=== PATIENT | female | born 1985 | race Caucasian/White ===

== ENCOUNTER 2020-04-07 09:49 | Inpatient (IN) | payer OTHER ==
--- NOTE | 2020-04-07 13:15 | PR ---
[facility] [address] [facility] [place], [place] [address] Signed Progress Notes IP Datetime Report Generated by CPN: 04/07/2020 13:15 PROGRESS NOTES: [id number] Impression: Normal progression of labor; Reassuring heart rate Procedures: Sterile Vag Exam Plan: Continue present management VITAL SIGNS: [id number] Vital Signs: Reviewed; Within Normal Limits VS Notable Details: Mildly elevated (sustained) bps in office EXAM: [id number] Dilatation: 3.5 Effacement: 95 Station: -4 Uterine Contractions: Irregular MEMBRANES: [id number] Membrane Status: Intact Comments: Pt seen and examined. Doing well. Feeling mild contractions and slightly more pelvic pressure. FHT Cat 1. station remains quite high. Will continue pitocin and anticipate AROM when vertex well applied Fetus A: [id number] FHR Baseline: 145 Variability: Moderate 6-25bpm Accelerations: 15X15 Decelerations: None FHR Category: Category I Presentation: Vertex Comments on Fetus A: No evidence of metabolic acidosis Fetus B: [id number] Signing Physician: Juan Jacobo DO Copies: ~ *Electronically Signed* 04/07/20 9139 JUAN JACOBO DO PATIENT NAME: MAGGIE GAMEZ PROGRESS NOTE DATE OF : 85 PHYSICIAN: JUAN JACOBO DO RPT #: [id number] REPORT IS CONFIDENTIAL AND NOT TO BE RELEASED WITHOUT AUTHORIZATION
--- NOTE | 2020-04-07 15:30 | PR ---
[facility] [address] [place], [place] [address] Signed Progress Notes IP Datetime Report Generated by CPAlesha: 04/07/2020 15:30 PROGRESS NOTES: [id number] Impression: Normal progression of labor; Reassuring heart rate Procedures: Artificial ROM; Sterile Vag Exam Plan: Continue present management VITAL SIGNS: [id number] Vital Signs: Reviewed; Within Normal Limits VS Notable Details: Mildly elevated (sustained) bps in office EXAM: [id number] Dilatation: 5.0 Effacement: 90 Station: -3 Uterine Contractions: Irregular MEMBRANES: [id number] Membrane Status: Intact Amniotic Fluid Color: Clear ROM Note: Verbal consent obtained for AROM after reviewing head well applied. AROM then easily performed on bulging membranes for copious amount of clear fluid. Descent of head closely monitored. Mother and baby tolerated well Comments: Pt seen and examined. Doing well. Slightly more uncomfortable w/ contractions. Bulging membranes noted, and AROM performed. Pt requesting epidural, and anesthesia en route. Reviewed anticipated course of remainder of labor / delivery. All questions answered Fetus A: [id number] FHR Baseline: 135 Variability: Moderate 6-25bpm Accelerations: 15X15 Decelerations: None FHR Category: Category I Presentation: Vertex Comments on Fetus A: No evidence of metabolic acidosis Fetus B: [id number] Signing Physician: Juan Jacobo DO Copies: *Electronically Signed* 04/07/20 2977 JUAN JACOBO DO PATIENT NAME: MAGGIE GAMEZ PROGRESS NOTE DATE OF : 85 PHYSICIAN: JUAN JACOBO DO RPT #: [id number] REPORT IS CONFIDENTIAL AND NOT TO BE RELEASED WITHOUT AUTHORIZATION [facility] [address] [place] [address] Signed ~ *Electronically Signed* 04/07/20 1530 JUAN JACOBO DO PATIENT NAME: MAGGIE GAMEZ PROGRESS NOTE DATE OF : 85 PHYSICIAN: JUAN JACOBO DO RPT #: [id number] REPORT IS CONFIDENTIAL AND NOT TO BE RELEASED WITHOUT AUTHORIZATION
--- NOTE | 2020-04-07 19:35 | PR ---
[facility] [address] [place], [place] [address] Signed Progress Notes IP Datetime Report Generated by GRACIE: 04/07/2020 19:35 PROGRESS NOTES: [id number] Impression: Normal progression of labor; Reassuring heart rate Procedures: Sterile Vag Exam Plan: Continue present management; Anticipate Vaginal Delivery Informed Consent Obtain: Vaginal Delivery VITAL SIGNS: [id number] Vital Signs: Reviewed; Within Normal Limits VS Notable Details: Mildly elevated (sustained) bps in office EXAM: [id number] Dilatation: 9.0 Effacement: 95 Station: -3 Uterine Contractions: q2-4 min MEMBRANES: [id number] Membrane Status: Intact Amniotic Fluid Color: Clear ROM Note: Verbal consent obtained for AROM after reviewing head well applied. AROM then easily performed on bulging membranes for copious amount of clear fluid. Descent of head closely monitored. Mother and baby tolerated well Comments: Pt seen and examined. Doing well. Comfortable w/ ctxs. BPs normal and no AVINA, RUQ pain, or visual changes. Cervix now 9cm but station remains somewhat high. PAU positioning, adequate pelvis, and no suspected macrosomia. FHT reassuring. Plan: continue pitocin per protocol. Continue repositioning including high Fowlers. Anticipate . Fetus A: [id number] FHR Baseline: 125 Variability: Moderate 6-25bpm Accelerations: 15X15 Decelerations: None FHR Category: Category I Presentation: Vertex Other Presentation: PAU Comments on Fetus A: No evidence of metabolic acidosis Fetus B: [id number] Signing Physician: Juan Jacobo DO *Electronically Signed* 04/07/201934 JACOBO,JUAN Grant DO PATIENT NAME: MAGGIE GAMEZ PROGRESS NOTE DATE OF : 85 PHYSICIAN: JUAN JACOBO DO RPT #: [id number] REPORT IS CONFIDENTIAL AND NOT TO BE RELEASED WITHOUT AUTHORIZATION [facility] [address] [place] [address] Signed Copies: ~ *Electronically Signed* 04/07/201934 JACOBO,JUAN Grant DO PATIENT NAME: MAGGIE GAMEZ PROGRESS NOTE DATE OF : 85 PHYSICIAN: JUAN JACOBO DO RPT #: [id number] REPORT IS CONFIDENTIAL AND NOT TO BE RELEASED WITHOUT AUTHORIZATION
--- NOTE | 2020-04-07 21:34 | PR ---
[facility] [facility] [address] [place], [place] [address] Signed Progress Notes IP Datetime Report Generated by GRACIE: 04/07/2020 21:34 PROGRESS NOTES: [id number] Impression: Normal progression of labor; Reassuring heart rate Procedures: Sterile Vag Exam Plan: Continue present management; Anticipate Vaginal Delivery Informed Consent Obtain: Vaginal Delivery VITAL SIGNS: [id number] Vital Signs: Reviewed; Within Normal Limits VS Notable Details: Elevated BP w/ emesis; rececheck normal EXAM: [id number] Dilatation: 9.5 Effacement: 100 Station: -1 Uterine Contractions: q 2-3 minutes MEMBRANES: [id number] Membrane Status: Intact Amniotic Fluid Color: Clear ROM Note: Verbal consent obtained for AROM after reviewing head well applied. AROM then easily performed on bulging membranes for copious amount of clear fluid. Descent of head closely monitored. Mother and baby tolerated well Comments: Pt doing well. Feeling some more pressure but no urge to push. FHT reassuring with some variable decelerations noted. Continue expectant management. Fetus A: [id number] FHR Baseline: 140 Variability: Moderate 6-25bpm Accelerations: 15X15 Decelerations: Variable FHR Category: Category II Presentation: Vertex Other Presentation: PAU Comments on Fetus A: No evidence of metabolic acidosis Fetus B: [id number] Signing Physician: Juan Jacobo DO Copies: *Electronically Signed* 04/07/20 7475 JUAN JACOBO DO PATIENT NAME: MAGGIE GAMEZ PROGRESS NOTE DATE OF : 85 PHYSICIAN: JUAN JACOBO DO RPT #: [id number] REPORT IS CONFIDENTIAL AND NOT TO BE RELEASED WITHOUT AUTHORIZATION [facility] [address] [place] [address] [place], [place] [address] Signed ~ *Electronically Signed* 04/07/20 2134 JUAN JACOBO DO PATIENT NAME: MAGGIE GAMEZ PROGRESS NOTE DATE OF : 85 PHYSICIAN: JUAN JACOBO DO RPT #: [id number] REPORT IS CONFIDENTIAL AND NOT TO BE RELEASED WITHOUT AUTHORIZATION
--- NOTE | 2020-04-07 22:20 | PR ---
[facility] [address] [place], [place] [address] Signed Progress Notes IP Datetime Report Generated by CPN: 04/07/2020 22:19 PROGRESS NOTES: [id number] Impression: Normal progression of labor; Reassuring heart rate Procedures: Sterile Vag Exam Plan: Anticipate Vaginal Delivery Informed Consent Obtain: Vaginal Delivery VITAL SIGNS: [id number] Vital Signs: Reviewed; Within Normal Limits VS Notable Details: Elevated BP w/ emesis; rececheck normal EXAM: [id number] Dilatation: 9.5 Effacement: 100 Station: 0 Uterine Contractions: q 2-3 min MEMBRANES: [id number] Membrane Status: Intact Amniotic Fluid Color: Clear ROM Note: Verbal consent obtained for AROM after reviewing head well applied. AROM then easily performed on bulging membranes for copious amount of clear fluid. Descent of head closely monitored. Mother and baby tolerated well Comments: Pt seen and examined. Doing well and more uncomfortable w/ ctxs more pelvic pressure. Small rim of easily reducible cervix. Will begin pushing and anticipate soon. Fetus A: [id number] FHR Baseline: 145 Variability: Moderate 6-25bpm Accelerations: None Decelerations: Variable FHR Category: Category II Presentation: Vertex Other Presentation: PAU Comments on Fetus A: No evidence of metabolic acidosis Fetus B: [id number] Signing Physician: Juan Jacobo DO Copies: *Electronically Signed* 04/07/20 5382 JUAN JACOBO DO PATIENT NAME: MAGGIE GAMEZ PROGRESS NOTE DATE OF : 85 PHYSICIAN: JUAN JACOBO DO RPT #: [id number] REPORT IS CONFIDENTIAL AND NOT TO BE RELEASED WITHOUT AUTHORIZATION [facility] [address] [place] [address] Signed ~ *Electronically Signed* 04/07/20 221 JUAN JACOBO DO PATIENT NAME: MAGGIE GAMEZ PROGRESS NOTE DATE OF : 85 PHYSICIAN: JUAN JACOBO DO RPT #: [id number] REPORT IS CONFIDENTIAL AND NOT TO BE RELEASED WITHOUT AUTHORIZATION
--- NOTE | 2020-04-08 10:32 | PR ---
[facility] [address] [facility] [place], [place] [address] Signed PP Progress Notes Datetime Report Generated by CPN: 04/08/2020 10:32 SUBJECTIVE: [id number] Pain: Within normal limits Nausea/Vomiting: Denies Flatus: Yes Bowel Movement: No Vital Signs: [id number] Vital Signs: Reviewed; Within Normal Limits EXAM: [id number] Cardiovascular: Normal Respiratory: Normal Abdomen/Uterus: Normal Lochia: Normal Vulva/Perineum: Not Done Breasts: Not Done CVA Tenderness: Normal Extremities: Normal Incision: Not Applicable Progress: Normal Exam Comments: Fundus firm U-2 nontender IMPRESSION/PLAN/PROCEDURES: [id number] Impression: Normal progression Plan: Continue present management Progress Notes: Pt seen and examined. Doing well. Ambulating, voiding, and tolerating full diet. Pain and lochia minimal. well w/ assistance. No complaints. Reviewed labs and pt is Rubella NON-immune. MMR ordered for prior to discharge tomorrow Signing Physician: Juan Jacobo DO Copies: ~ *Electronically Signed* 04/08/20 1032 JUAN JACOBO DO PATIENT NAME: MAGGIE GAMEZ PROGRESS NOTE DATE OF : 85 PHYSICIAN: JUAN JACOBO DO RPT #: [id number] REPORT IS CONFIDENTIAL AND NOT TO BE RELEASED WITHOUT AUTHORIZATION
--- NOTE | 2020-04-09 09:14 | PR ---
[facility] [address] [facility] [place], [place] [address] Signed PP Progress Notes Datetime Report Generated by CPN: 04/09/2020 09:14 SUBJECTIVE: [id number] Pain: Within normal limits Nausea/Vomiting: Denies Flatus: Yes Bowel Movement: No Vital Signs: [id number] Vital Signs: Reviewed Notable Details: No severe BPs EXAM: [id number] Cardiovascular: Normal Respiratory: Normal Abdomen/Uterus: Normal Lochia: Normal Vulva/Perineum: Not Done Breasts: Not Done CVA Tenderness: Normal Extremities: Normal Incision: Not Applicable Progress: Normal Exam Comments: Fundus firm U-2 nontender IMPRESSION/PLAN/PROCEDURES: [id number] Impression: Normal progression Plan: Discharge Progress Notes: Pt seen and examined. Doing well. Ambulating voiding and tolerating full diet. Pain and lochia minimal. Breast feeding well. No severe range BPs, and no AVINA, RUQ pain, or visual changes. Desires d/c home. D/C instructions reviewed in detail. BP check in 2-3 days Signing Physician: Juan Jacobo DO Copies: ~ *Electronically Signed* 04/09/20 0914 JUAN JACOBO DO PATIENT NAME: MAGGIE GAMEZ PROGRESS NOTE DATE OF : 85 PHYSICIAN: JUAN JACOBO DO RPT #: [id number] REPORT IS CONFIDENTIAL AND NOT TO BE RELEASED WITHOUT AUTHORIZATION
== END 2020-04-09 11:15 | disposition home or self-care (01) | DRG 807 ==
LOC: FBC 09:49
PROVIDERS: ADMIT Obstetrics & Gynecology
PROC: 10E0XZZ Delivery of Products of Conception, External Approach (ICD-10-PCS; principal; 2020-04-07)
PROC: 10907ZC Drainage of Amniotic Fluid, Therapeutic from Products of Conception, Via Natural or Artificial Opening (ICD-10-PCS; 2020-04-07)
PROC: 00HU33Z Insertion of Infusion Device into Spinal Canal, Percutaneous Approach (ICD-10-PCS; 2020-04-07)
PROC: 3E0R3BZ Introduction of Anesthetic Agent into Spinal Canal, Percutaneous Approach (ICD-10-PCS; 2020-04-07)
PROC: 3E0134Z Introduction of Serum, Toxoid and Vaccine into Subcutaneous Tissue, Percutaneous Approach (ICD-10-PCS; 2020-04-09)
DX: O13.4 Gestational [pregnancy-induced] hypertension without significant proteinuria, complicating childbirth (principal); Z37.0 Single live birth; Z3A.37 37 weeks gestation of pregnancy; O76 Abnormality in fetal heart rate and rhythm complicating labor and delivery; O69.1XX0 Labor and delivery complicated by cord around neck, with compression, not applicable or unspecified; Z23 Encounter for immunization; Z88.0 Allergy status to penicillin
CPT/HCPCS: 01960; 82565; 82570; 84156; 84450; 84520; 84550; 85025; 85027; 90707; A9270; J2590; J2795; J3010; J7121